=== PATIENT | female | born 1990 | race Caucasian/White ===

== ENCOUNTER 2016-09-07 22:46 | Emergency (ER) | payer OTHER ==
[~2016-09-07 22:46] MED LIST: ANUSOL SUPP1 SUPP PR; COLACE PO; COLACE50 MG PO; LIDOCAINE HC20 MG/M1 MM; LORTAB 5/500 TA1 TA1 PO; PROCTOFOAM-HC 110 GM RC; TYLOX1 CAP 5/50 DOB; ULTRAM PO; VICODIN 5/500 T1 TAB PO
[2016-09-07] MEDS ORDERED: METHADONE PO (22:53)
== END 2016-09-07 23:53 | disposition home or self-care (01) ==
LOC: SED 22:46
DX: S01.01XA Laceration without foreign body of scalp, initial encounter (principal); B19.20 Unspecified viral hepatitis C without hepatic coma; F17.200 Nicotine dependence, unspecified, uncomplicated; X58.XXXA Exposure to other specified factors, initial encounter; Y09 Assault by unspecified means; Y92.9 Unspecified place or not applicable
CPT/HCPCS: 12001; 90471; 90715; 99283

== ENCOUNTER 2016-09-17 18:57 | Emergency (ER) | payer OTHER ==
[~2016-09-17 18:57] MED LIST changes: +METHADONE PO
== END 2016-09-17 19:33 | disposition home or self-care (01) ==
LOC: SED 18:57
DX: S01.01XD Laceration without foreign body of scalp, subsequent encounter (principal); B19.20 Unspecified viral hepatitis C without hepatic coma; F17.210 Nicotine dependence, cigarettes, uncomplicated; Z79.899 Other long term (current) drug therapy
CPT/HCPCS: 99281